=== PATIENT | female | born 1970 | race Two or more races ===

== ENCOUNTER 2020-11-04 16:14 | Emergency (ER) | payer MEDICAID ==
[~2020-11-04] VITALS: Ht 170.2 cm; Wt 110.7 kg
[2020-11-04] MEDS ORDERED: IBUPROFEN 800 MG TAB PO ONE (20:30)
[2020-11-04] MEDS ORDERED: ACETAMINOPHEN 500 MG TAB PO ONE (20:30)
[2020-11-04 21:05] VITALS: BP 137/88
== END 2020-11-04 21:20 | disposition home or self-care (01) ==
LOC: ER 16:14
DX: S61.001A Unspecified open wound of right thumb without damage to nail, initial encounter (principal); W26.0XXA Contact with knife, initial encounter; Y93.89 Activity, other specified; Y92.89 Other specified places as the place of occurrence of the external cause; Y99.8 Other external cause status
CPT/HCPCS: 73140